=== PATIENT | female | born 1945 ===

== ENCOUNTER 2025-03-09 10:42 | Day surgery (SDC) | payer MEDICARE ==
[2025-03-09] MEDS: TETRACAINE 0.5% STERI-UNIT SOL OP ONE ×2 (11:13→11:36)
[2025-03-09] MEDS: Ak-Dilate OPHTHALMIC*** 0.71 ML, Cyclogyl 1% OPHTH SOL 0.71 ML, GATIFLOXACIN 0.5% OPHTH... OP SCH (11:14)
[2025-03-09] MEDS ORDERED: Lactated Ringers 1,000 ML IV SCH (11:30)
[2025-03-09 11:31] VITALS: RESP 18
[2025-03-09 11:36] LABS: Calcium 9.3 mg/dL (8.4-10.2); Carbon Dioxide 30.0 mmol/L (22-30); Creatinine 1 0.93 mg/dL (0.52-1.04); EST GLOMERULAR FILTRATION RATE 62.5 ML/MIN; Glucose 100.0 mg/dL (74-106); Potassium 4.1 mmol/L (3.5-5.1)
[2025-03-09] MEDS ORDERED: propofoL IV ONE ×2 (12:39→12:58)
[2025-03-09] MEDS: ACETAZOLAMIDE 250 MG TABLET PO ONE (13:14)
[2025-03-09 13:28] VITALS: BP 138/89; PULSE 50; TEMP 97; O2SAT 96
[2025-03-09] MEDS ORDERED: TRIAMCINOLONE 15 MG/ML INJ INTRAOP NR (13:30)
[2025-03-09] MEDS ORDERED: VIGAMOX/BSS 0.15% SYR IO NR (13:30)
[2025-03-09] MEDS ORDERED: BETADINE 5% OPHTHALMIC 30 ML OP NR (13:30)
[2025-03-09] MEDS ORDERED: Epinephrine Preservative Free 1 MG/ML INTRAOP NR (13:30)
[2025-03-09] MEDS ORDERED: DEXMEDETOMIDINE 80 MCG/20ML-NS IV NR (13:30)
[2025-03-09] MEDS ORDERED: Zofran 4 MG/2 ML VIAL IV PRN (13:30)
== END 2025-03-09 13:40 | disposition home or self-care (01) ==
LOC: SDC 10:42
PROVIDERS: ATTEND Ophthalmology
DX: H25.812 Combined forms of age-related cataract, left eye (principal); I10 Essential (primary) hypertension

== ENCOUNTER 2025-04-06 10:27 | Day surgery (SDC) | payer MEDICARE ==
[~2025-04-06 10:27] MED LIST: BETADINE 5% OPHTHALMIC 30 ML OP NR; DEXMEDETOMIDINE 80 MCG/20ML-NS IV NR; Epinephrine Preservative Free 1 MG/ML INTRAOP NR; TRIAMCINOLONE 15 MG/ML INJ INTRAOP NR; VIGAMOX/BSS 0.15% SYR IO NR; Zofran 4 MG/2 ML VIAL IV PRN
[2025-04-06] MEDS ORDERED: Lactated Ringers 1,000 ML IV ONE (11:44)
[2025-04-06 11:56] VITALS: RESP 16
[2025-04-06] MEDS: Lactated Ringers 1,000 ML IV SCH (12:04)
[2025-04-06] MEDS: TETRACAINE 0.5% STERI-UNIT SOL OP ONE ×2 (12:19→12:39)
[2025-04-06] MEDS: Ak-Dilate OPHTHALMIC*** 0.71 ML, Cyclogyl 1% OPHTH SOL 0.71 ML, GATIFLOXACIN 0.5% OPHTH... OP SCH (12:20)
[2025-04-06 12:46] LABS: Calcium 9.2 mg/dL (8.4-10.2); Carbon Dioxide 29.0 mmol/L (22-30); Creatinine 1 1.02 mg/dL (0.52-1.04); EST GLOMERULAR FILTRATION RATE 56.0 ML/MIN; Glucose 100.0 mg/dL (74-106); Potassium 4.2 mmol/L (3.5-5.1)
[2025-04-06] MEDS ORDERED: propofoL IV ONE ×2 (13:57→14:15)
[2025-04-06] MEDS: ACETAZOLAMIDE 250 MG TABLET PO ONE (14:32)
[2025-04-06 14:39] VITALS: O2SAT 95
[2025-04-06 14:45] VITALS: BP 166/64; PULSE 55; TEMP 98
== END 2025-04-06 14:53 | disposition home or self-care (01) ==
LOC: SDC 10:27
PROVIDERS: ATTEND Ophthalmology
DX: H25.811 Combined forms of age-related cataract, right eye (principal); H52.202 Unspecified astigmatism, left eye